=== PATIENT | male | born 1985 | race Caucasian/White ===

== ENCOUNTER 2019-09-11 15:07 | Emergency (ER) | payer SELFPAY ==
[2019-09-11] VITALS (9 sets, daily range): BP systolic 94–129; BP diastolic 54–82; PULSE 62–91; RESP 12–18; TEMP 36.3; O2SAT 98–100; BMI 22.3
--- NOTE | 2019-09-11 15:07 | ECG_ITS ---
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 Measurements Intervals [place] Rate: 76 P: 149 GA: 160 QRS: 145 QRSD: 89 T: 149 QT: 370 QTc: 418 Interpretive Statements SINUS RHYTHM ARM LEADS REVERSED [INVERTED P AND QRS IN I] No previous ECG available for comparison Electronically Signed On 09-12-2019 15:11:23 CDT by Dewey Alas M.D. [id number]
--- NOTE | 2019-09-11 15:07 | CTR_ITS ---
PROCEDURE INFORMATION: Exam: CT Head Without Contrast Exam date and time: 09/11/2019 3:17 PM Age: 26 years old Clinical indication: Altered mental status/memory loss; Patient HX: Patient found on the side of the road with possible siezure activity. No further HX. ; Additional info: AMS, new onset seizure TECHNIQUE: Imaging protocol: Computed tomography of the head without contrast. Radiation optimization: All CT scans at this facility use at least one of these dose optimization techniques: automated exposure control; mA and/or kV adjustment per patient size (includes targeted exams where dose is matched to clinical indication); or iterative reconstruction. COMPARISON: No relevant prior studies available. RADIATION DOSE METRICS: Total DLP (mGy-cm): 771.66 FINDINGS: Brain: Normal. No hemorrhage. Unremarkable white matter. No mass effect. Ventricles: Normal variant cavum septum pellucidum. Bones/joints: Unremarkable. No acute fracture. Sinuses: Visualized sinuses are unremarkable. No fluid levels. Mastoid air cells: Visualized mastoid air cells are well aerated. Auditory system: There is cerumen in the left external auditory canal. Soft tissues: Unremarkable. CT/CT head wo con* [id number] IMPRESSION: No acute findings. Radiation Dose CTDIVOL = (mGy): DLP = 771.66 (mGy-cm)
--- NOTE | 2019-09-11 15:08 | XRR_ITS ---
PROCEDURE INFORMATION: Exam: XR Chest, 1 View Exam date and time: 09/11/2019 3:17 PM Age: 26 years old Clinical indication: Shortness of breath; Additional info: AMS, seizure TECHNIQUE: Imaging protocol: XR of the chest Views: 1 view. COMPARISON: No relevant prior studies available. FINDINGS: Lungs: Unremarkable. No consolidation. Pleural space: Unremarkable. No pleural effusion. No pneumothorax. Heart/Mediastinum: Unremarkable. No cardiomegaly. Bones/joints: Thoracic dextroscoliosis. XR/XR chest 1V portable [id number] IMPRESSION: No acute findings.
[2019-09-11] MEDS: sodium chloride 0.9% 1,000 ML 999 ML IV ×2 (15:13→18:21)
--- NOTE | 2019-09-11 15:28 | PC.NURSE ---
Pt to CT
--- NOTE | 2019-09-11 15:34 | ED_ITS ---
Documented by User: Blanca Kohli MD 09/13/19 13:30 HPI - Seizure General: Chief Complaint: Seizure Stated Complaint: UNRESPONSIVE; SEIZURES Time Seen by Provider: 09/11/19 19:49 History of Present Illness: HPI Narrative: This patient is a 26-year-old male brought in by ambulance. He was found on the side of the road unresponsive. There is no sign of trauma. EMS had him in their rig when he had what appeared to them to be a seizure. He was given 1 mg of Ativan. There was a period of time that he was awake and able to provide some history to EMS. He told him that he has a history of narcolepsy and sometimes has twitching with that. He does not have a history of seizures. He apparently was here living with a friend but they be came estranged and the patient told EMS that he was walking back to [place] where he lived previously. On my exam the patient is responsive to stimuli but is not waking up and answering my questions. complaint: possible seizure Description of Episode: loss of consciousness and tonic-clonic movement Witnessed: Yes - by EMS Trauma: No Seizure History: No Place: Outdoors Possible Precipitating Event: drug use (Patient was found with marijuana) and stress Review of Systems General: Reports: ROS unobtainable due to mental status PFSH ED PFSH: Social History Smoking and tobacco status: unknown if ever smoked Physical Exam Const: COMMON NORMALS: no acute distress GENERAL APPEARANCE: comfortable HENMT: HEAD & SCALP: normal to inspection FACE & SINUS: normal facial exam Eye: GENERAL EYE: appearance normal, both eyes and all related structures Neck/C-Spine: COMMON NORMALS: supple, no meningeal signs and no JVD Chest: COMMONS NORMALS: normal inspection of the chest Resp: COMMON NORMALS: normal respiratory effort, No use of accessory muscles and clear to auscultation bilaterally AUSCULTATION: clear to auscultation bilaterally Cardio: COMMON NORMALS: no JVD, regular rate, regular rhythm and No murmurs present (Cardio) RATE: regular rate RHYTHM: regular rhythm GI: COMMON NORMALS: Normal to inspection, nondistended, normoactive bowel sounds present, Soft to palpation and non-tender INSPECTION: Yes normal to inspection AUSCULTATION: Yes normoactive bowel sounds PALPATION: Yes Soft to palpation Back/Pelvis: COMMON NORMALS: thoracic and lumbar spine normal to inspection Extremity: COMMON NORMALS: normal to inspection Neuro: COMMON NORMALS: moves all extremities, no focal motor deficits and no sensory deficits noted MENINGEAL SIGNS: Yes no meningeal signs Skin: COMMON NORMALS: no rashes or lesions noted and turgor normal GENERAL SKIN EXAM: no rashes or lesions noted and turgor normal Course Reevaluation(s): Reevaluation #1: Patient sleeping. He woke to a gentle sternal rub. He was still not conversational. Vital signs remained stable. Lab work has been relatively unremarkable other than probably some dehydration. Urine drug screen was positive for amphetamines and marijuana. We will continue to hydrate and let him rest. I am not sure if he is postictal from a seizure or if this is a recovery period after methamphetamine use. I will turn his care over to Dr. Petit who is coming on for the maintenance technician 2nd shift. Vital Signs: Vital signs: Vital Signs Temperature 97.3 F L 09/11/19 14:59 Pulse Rate 91 09/11/19 20:27 Respiratory Rate 18 09/11/19 20:27 Blood Pressure 103/60 09/11/19 20:27 Pulse Oximetry 100 09/11/19 20:27 MDM - Seizure Lab Data: Labs: Lab Results 09/11/19 09/11/19 09/11/19 Range/Units 16:00 16:00 16:10 WBC (4.0-10.0) 10^3/ uL RBC (4.1-5.3) 10^6/u L Hgb (11.7-16.6) g/dL Hct (42.0-52.0) % MCV (80-94) fL MCH (28.0-34.0) pg MCHC (30.0-36.0) g/dL RDW (12.1-15.1) % Plt Count (130-400) 10^3/c mm MPV (7.4-10.4) fL Neut % (Auto) % Lymph % (Auto) % [place] % (Auto) % Eos % (Auto) % Baso % (Auto) % Neut # (Auto) (1.8-7.7) 10^3/u L Lymph # (Auto) (0.8-4.8) 10^3/u L [place] # (Auto) (0.2-0.9) 10^3/u L Eos # (Auto) (0.0-0.8) 10^3/u L Baso # (Auto) (0.0-0.1) 10^3/u L Nucleated RBC % (a uto) % Nucleated RBCs # /100WBC Sodium 140 (136-145) mmol/L Potassium 4.4 (3.5-5.1) mmol/L Chloride 101 (98-107) mmol/L Carbon Dioxide 26 (22-29) mmol/L Anion Gap 17.4 (5-19) BUN 19 (6-20) mg/dL Creatinine 1.4 H (0.7-1.2) mg/dL GFR Calculation 62.3 L (90-130) mL/min Glucose 92 (65-115) mg/dL Calculated Osmolal ity 286 (285-295) mOsm/k g Lactate (0.5-2.2) mmol/L Calcium 9.6 (8.5-10.5) mg/dL Total Bilirubin 0.4 (0.15-1.2) mg/dL AST 17 (0-40) U/L ALT 10 (0-41) U/L Alkaline Phosphata se 62 (40-130) IU/L Creatine Kinase 224 (39-308) U/L CK-MB (CK-2) 2.5 (0-10.4) ng/mL CK-MB (CK-2) Rel I ndex (0.0-5.3) % Total Protein 7.4 (6.6-8.7) g/dL Albumin 4.8 (3.5-5.2) g/dL Globulin 2.6 (1.3-4.6) g/dL Urine Color Dark yellow (Yellow) Urine Appearance Clear (CLEAR) Urine pH 5 (5-7) Ur Specific Gravit y 1.030 (1.005-1.030) Urine Protein Trace (Negative) Urine Glucose (UA) Norm (Normal) Urine Ketones 1+ H (Negative) Urine Blood Neg (Negative) Urine Nitrate Negative (Negative) Urine Bilirubin 1+ H (NEGATIVE) Urine Urobilinogen 4 H (Negative) mg/dL Ur Leukocyte Nelli ase Negative (Negative) Urine RBC None (0-2) /hpf Urine WBC 0-4 H (0-5) /hpf Ur Squamous Epith Cells None (0-5) Ur Transition Epit h Cell Rare /hpf Amorphous Sediment Not Reportable Urine Bacteria Trace (NONE) Urine Mucus 2+ Urine Opiates Scre en Negative (Negative) ng/mL Ur Barbiturates Sc reen Negative (Negative) ng/mL Ur Phencyclidine S crn Negative (Negative) ng/mL Ur Amphetamines Sc reen Positive H (Negative) ng/mL U Benzodiazepines Scrn Negative (Negative) ng/mL Urine Cocaine Scre en Negative (Negative) ng/mL U Marijuana (THC) Screen Positive H (Negative) ng/mL Ethyl Alcohol < 10 (0-10) mg/dL 09/11/19 09/11/19 Range/Units 16:10 16:10 WBC 13.9 H (4.0-10.0) 10^3/ uL RBC 5.13 (4.1-5.3) 10^6/u L Hgb 15.1 (11.7-16.6) g/dL Hct 45.1 (42.0-52.0) % MCV 87.9 (80-94) fL MCH 29.4 (28.0-34.0) pg MCHC 33.5 (30.0-36.0) g/dL RDW 13.0 (12.1-15.1) % Plt Count 378 (130-400) 10^3/c mm MPV 8.2 (7.4-10.4) fL Neut % (Auto) 74.2 % Lymph % (Auto) 16.8 % [place] % (Auto) 7.7 % Eos % (Auto) 0.8 % Baso % (Auto) 0.3 % Neut # (Auto) 10.3 H (1.8-7.7) 10^3/u L Lymph # (Auto) 2.3 (0.8-4.8) 10^3/u L [place] # (Auto) 1.1 H (0.2-0.9) 10^3/u L Eos # (Auto) 0.1 (0.0-0.8) 10^3/u L Baso # (Auto) 0.0 (0.0-0.1) 10^3/u L Nucleated RBC % (a uto) 0 % Nucleated RBCs # 0.0 /100WBC Sodium (136-145) mmol/L Potassium (3.5-5.1) mmol/L Chloride (98-107) mmol/L Carbon Dioxide (22-29) mmol/L Anion Gap (5-19) BUN (6-20) mg/dL Creatinine (0.7-1.2) mg/dL GFR Calculation (90-130) mL/min Glucose (65-115) mg/dL Calculated Osmolal ity (285-295) mOsm/k g Lactate 1.0 (0.5-2.2) mmol/L Calcium (8.5-10.5) mg/dL Total Bilirubin (0.15-1.2) mg/dL AST (0-40) U/L ALT (0-41) U/L Alkaline Phosphata se (40-130) IU/L Creatine Kinase (39-308) U/L CK-MB (CK-2) (0-10.4) ng/mL CK-MB (CK-2) Rel I ndex (0.0-5.3) % Total Protein (6.6-8.7) g/dL Albumin (3.5-5.2) g/dL Globulin (1.3-4.6) g/dL Urine Color (Yellow) Urine Appearance (CLEAR) Urine pH (5-7) Ur Specific Gravit y (1.005-1.030) Urine Protein (Negative) Urine Glucose (UA) (Normal) Urine Ketones (Negative) Urine Blood (Negative) Urine Nitrate (Negative) Urine Bilirubin (NEGATIVE) Urine Urobilinogen (Negative) mg/dL Ur Leukocyte Nelli ase (Negative) Urine RBC (0-2) /hpf Urine WBC (0-5) /hpf Ur Squamous Epith Cells (0-5) Ur Transition Epit h Cell /hpf Amorphous Sediment Urine Bacteria (NONE) Urine Mucus Urine Opiates Scre en (Negative) ng/mL Ur Barbiturates Sc reen (Negative) ng/mL Ur Phencyclidine S crn (Negative) ng/mL Ur Amphetamines Sc reen (Negative) ng/mL U Benzodiazepines Scrn (Negative) ng/mL Urine Cocaine Scre en (Negative) ng/mL U Marijuana (THC) Screen (Negative) ng/mL Ethyl Alcohol (0-10) mg/dL Discharge Plan Discharge Patient Disposition: Home, Self-Care Clinical Impression: Generalized seizure, Substance abuse Heat causing collapse Qualifiers: Encounter type: initial encounter Qualified Code(s): T67.1XXA - Heat syncope, initial encounter Condition: Stable Prescriptions: No Action Unable to Assess RF: 0 Discharge Orders: Discharge Order (Routine); Ordered 09/11/19 Ordered By: Jann Petit Discharge Diet: Advance as tolerated Discharge Activity: Limit activity as instructed Patient Instructions: Heat Exhaustion (ED), Seizures Activity Restrictions/Additional Instructions: Plenty of liquids over the next 48 hours. Reduce activity in the heat for the next 48 hours as a minimum. Abstain from illicit substances. Return for repeat episodes of seizures, fever, mental status changes, other concerning symptoms Discharge Date/Time: 09/11/19 20:29 Coding Level of Care Code ED Receiving Inspector for Chg Fwd Exam Comprehensive Documented by User: Jann Petit DO 09/12/19 07:05 HPI - Seizure General: Chief Complaint: Seizure Stated Complaint: UNRESPONSIVE; SEIZURES Time Seen by Provider: 09/11/19 19:49 PFSH ED PFSH: Social History Smoking and tobacco status: unknown if ever smoked Course Vital Signs: Vital signs: Vital Signs Temperature 97.3 F L 09/11/19 14:59 Pulse Rate 91 09/11/19 20:27 Respiratory Rate 18 09/11/19 20:27 Blood Pressure 103/60 09/11/19 20:27 Pulse Oximetry 100 09/11/19 20:27 MDM - Seizure MDM Narrative: Medical decision making narrative: 34-year-old male checked out to me by Dr. Kohli at shift change. He evidently had had a collapse along the side of the road walking to [place] [facility] witnessed what they thought was tonic- clonic seizure type activity after they were called to the scene. He has had no seizure activity here. He is slept, and woken up. He is completely appropriate. He is called a couple of family members to come get him, but no one has answered the call. He has been hydrated. Is a mild elevation in his w vladislav blood cell count and creatinine, his other laboratory is benign. Head CT and chest x-ray are negative. His UDS was positive for amphetamines and marijuana. With return to baseline, and after hydration, he will be discharged Lab Data: Labs: Lab Results 09/11/19 09/11/19 09/11/19 Range/Units 16:00 16:00 16:10 WBC (4.0-10.0) 10^3/ uL RBC (4.1-5.3) 10^6/u L Hgb (11.7-16.6) g/dL Hct (42.0-52.0) % MCV (80-94) fL MCH (28.0-34.0) pg MCHC (30.0-36.0) g/dL RDW (12.1-15.1) % Plt Count (130-400) 10^3/c mm MPV (7.4-10.4) fL Neut % (Auto) % Lymph % (Auto) % [place] % (Auto) % Eos % (Auto) % Baso % (Auto) % Neut # (Auto) (1.8-7.7) 10^3/u L Lymph # (Auto) (0.8-4.8) 10^3/u L [place] # (Auto) (0.2-0.9) 10^3/u L Eos # (Auto) (0.0-0.8) 10^3/u L Baso # (Auto) (0.0-0.1) 10^3/u L Nucleated RBC % (a uto) % Nucleated RBCs # /100WBC Sodium 140 (136-145) mmol/L Potassium 4.4 (3.5-5.1) mmol/L Chloride 101 (98-107) mmol/L Carbon Dioxide 26 (22-29) mmol/L Anion Gap 17.4 (5-19) BUN 19 (6-20) mg/dL Creatinine 1.4 H (0.7-1.2) mg/dL GFR Calculation 62.3 L (90-130) mL/min Glucose 92 (65-115) mg/dL Calculated Osmolal ity 286 (285-295) mOsm/k g Lactate (0.5-2.2) mmol/L Calcium 9.6 (8.5-10.5) mg/dL Total Bilirubin 0.4 (0.15-1.2) mg/dL AST 17 (0-40) U/L ALT 10 (0-41) U/L Alkaline Phosphata se 62 (40-130) IU/L Creatine Kinase 224 (39-308) U/L CK-MB (CK-2) 2.5 (0-10.4) ng/mL CK-MB (CK-2) Rel I ndex (0.0-5.3) % Total Protein 7.4 (6.6-8.7) g/dL Albumin 4.8 (3.5-5.2) g/dL Globulin 2.6 (1.3-4.6) g/dL Urine Color Dark yellow (Yellow) Urine Appearance Clear (CLEAR) Urine pH 5 (5-7) Ur Specific Gravit y 1.030 (1.005-1.030) Urine Protein Trace (Negative) Urine Glucose (UA) Norm (Normal) Urine Ketones 1+ H (Negative) Urine Blood Neg (Negative) Urine Nitrate Negative (Negative) Urine Bilirubin 1+ H (NEGATIVE) Urine Urobilinogen 4 H (Negative) mg/dL Ur Leukocyte Nelli ase Negative (Negative) Urine RBC None (0-2) /hpf Urine WBC 0-4 H (0-5) /hpf Ur Squamous Epith Cells None (0-5) Ur Transition Epit h Cell Rare /hpf Amorphous Sediment Not Reportable Urine Bacteria Trace (NONE) Urine Mucus 2+ Urine Opiates Scre en Negative (Negative) ng/mL Ur Barbiturates Sc reen Negative (Negative) ng/mL Ur Phencyclidine S crn Negative (Negative) ng/mL Ur Amphetamines Sc reen Positive H (Negative) ng/mL U Benzodiazepines Scrn Negative (Negative) ng/mL Urine Cocaine Scre en Negative (Negative) ng/mL U Marijuana (THC) Screen Positive H (Negative) ng/mL Ethyl Alcohol < 10 (0-10) mg/dL 09/11/19 09/11/19 Range/Units 16:10 16:10 WBC 13.9 H (4.0-10.0) 10^3/ uL RBC 5.13 (4.1-5.3) 10^6/u L Hgb 15.1 (11.7-16.6) g/dL Hct 45.1 (42.0-52.0) % MCV 87.9 (80-94) fL MCH 29.4 (28.0-34.0) pg MCHC 33.5 (30.0-36.0) g/dL RDW 13.0 (12.1-15.1) % Plt Count 378 (130-400) 10^3/c mm MPV 8.2 (7.4-10.4) fL Neut % (Auto) 74.2 % Lymph % (Auto) 16.8 % [place] % (Auto) 7.7 % Eos % (Auto) 0.8 % Baso % (Auto) 0.3 % Neut # (Auto) 10.3 H (1.8-7.7) 10^3/u L Lymph # (Auto) 2.3 (0.8-4.8) 10^3/u L [place] # (Auto) 1.1 H (0.2-0.9) 10^3/u L Eos # (Auto) 0.1 (0.0-0.8) 10^3/u L Baso # (Auto) 0.0 (0.0-0.1) 10^3/u L Nucleated RBC % (a uto) 0 % Nucleated RBCs # 0.0 /100WBC Sodium (136-145) mmol/L Potassium (3.5-5.1) mmol/L Chloride (98-107) mmol/L Carbon Dioxide (22-29) mmol/L Anion Gap (5-19) BUN (6-20) mg/dL Creatinine (0.7-1.2) mg/dL GFR Calculation (90-130) mL/min Glucose (65-115) mg/dL Calculated Osmolal ity (285-295) mOsm/k g Lactate 1.0 (0.5-2.2) mmol/L Calcium (8.5-10.5) mg/dL Total Bilirubin (0.15-1.2) mg/dL AST (0-40) U/L ALT (0-41) U/L Alkaline Phosphata se (40-130) IU/L Creatine Kinase (39-308) U/L CK-MB (CK-2) (0-10.4) ng/mL CK-MB (CK-2) Rel I ndex (0.0-5.3) % Total Protein (6.6-8.7) g/dL Albumin (3.5-5.2) g/dL Globulin (1.3-4.6) g/dL Urine Color (Yellow) Urine Appearance (CLEAR) Urine pH (5-7) Ur Specific Gravit y (1.005-1.030) Urine Protein (Negative) Urine Glucose (UA) (Normal) Urine Ketones (Negative) Urine Blood (Negative) Urine Nitrate (Negative) Urine Bilirubin (NEGATIVE) Urine Urobilinogen (Negative) mg/dL Ur Leukocyte Nelli ase (Negative) Urine RBC (0-2) /hpf Urine WBC (0-5) /hpf Ur Squamous Epith Cells (0-5) Ur Transition Epit h Cell /hpf Amorphous Sediment Urine Bacteria (NONE) Urine Mucus Urine Opiates Scre en (Negative) ng/mL Ur Barbiturates Sc reen (Negative) ng/mL Ur Phencyclidine S crn (Negative) ng/mL Ur Amphetamines Sc reen (Negative) ng/mL U Benzodiazepines Scrn (Negative) ng/mL Urine Cocaine Scre en (Negative) ng/mL U Marijuana (THC) Screen (Negative) ng/mL Ethyl Alcohol (0-10) mg/dL Discharge Plan Discharge Patient Disposition: Home, Self-Care Clinical Impression: Generalized seizure, Substance abuse Heat causing collapse Qualifiers: Encounter type: initial encounter Qualified Code(s): T67.1XXA - Heat syncope, initial encounter Condition: Stable Prescriptions: No Action Unable to Assess RF: 0 Discharge Orders: Discharge Order (Routine); Ordered 09/11/19 Ordered By: Jann Petit Discharge Diet: Advance as tolerated Discharge Activity: Limit activity as instructed Patient Instructions: Heat Exhaustion (ED), Seizures Activity Restrictions/Additional Instructions: Plenty of liquids over the next 48 hours. Reduce activity in the heat for the next 48 hours as a minimum. Abstain from illicit substances. Return for repeat episodes of seizures, fever, mental status changes, other concerning symptoms Discharge Date/Time: 09/11/19 20:29 Coding Level of Care Code ED Receiving Inspector for Nika Fwd Exam Comprehensive
--- NOTE | 2019-09-11 15:36 | PC.NURSE ---
Pt returned from CT
[2019-09-11 16:18] LABS: Basophils % 0.3 %; Eosinophils # 0.1 10^3/uL (0.0-0.8); Eosinophils % 0.8 %; Hematocrit 45.1 % (42.0-52.0); Hemoglobin 15.1 g/dL (11.7-16.6); Lymphocytes # 2.3 10^3/uL (0.8-4.8); Lymphocytes % 16.8 %; Mean Corpuscular HGB Conc 33.5 g/dL (30.0-36.0); Mean Corpuscular Hemoglobin 29.4 pg (28.0-34.0); Mean Corpuscular Volume 87.9 fL (80-94); Mean Platelet Volume 8.2 fL (7.4-10.4); Monocytes # 1.1 10^3/uL (0.2-0.9); Monocytes % 7.7 %; Neutrophils # 10.3 10^3/uL (1.8-7.7); Neutrophils % 74.2 %; Nucleated Red Blood Cells % 0 %; Platelet Count 378 10^3/cmm (130-400); Red Blood Count 5.13 10^6/uL (4.1-5.3); White Blood Count 13.9 10^3/uL (4.0-10.0)
[2019-09-11 16:28] LABS: Add Urine Microscopic? YES; Amphetamines Screen Urine Positive (Negative); Barbiturates Screen Urine Negative (Negative); Benzodiazepines Screen Urine Negative (Negative); Bilirubin Urine 1+ (NEGATIVE); Blood Urine Neg (Negative); Cocaine Screen Urine Negative (Negative); Glucose Urine UA Norm (Normal); Ketones Urine 1+ (Negative); Leukocyte Esterase Urine Negative (Negative); Nitrate Urine Negative (Negative); Opiate Screen Urine Negative (Negative); PCP Screen Urine Negative (Negative); Protein Urine Trace (Negative); THC Screen Urine Positive (Negative); Urine Appearance Clear (CLEAR); Urine Color Dark Yellow (Yellow); Urobilinogen Urine 4 mg/dL (Negative); pH Urine 5 (5-7)
[2019-09-11 16:29] LABS: Add Urine Culture? No; Bacteria Urine TRACE; Mucus Urine 2+; Transitional Epi Cells Urine RARE /hpf; WBC Urine 0-4 /hpf (0-5)
[2019-09-11 16:31] LABS: Alanine Aminotransferase 10 U/L (0-41); Albumin Level 4.8 g/dL (3.5-5.2); Alkaline Phosphatase 62 IU/L (40-130); Anion Gap 17.4 (5-19); Aspartate Amino Transferase 17 U/L (0-40); Blood Urea Nitrogen 19 mg/dL (6-20); Calcium 9.6 mg/dL (8.5-10.5); Carbon Dioxide 26 mmol/L (22-29); Chloride 101 mmol/L (98-107); Creatine Phosphokinase 224 U/L (39-308); Globulin 2.6 g/dL (1.3-4.6); Glomerular Filtration Rate 62.3 mL/min (90-130); Glucose 92 mg/dL (65-115); Osmolality Calculated 286 mOsm/kg (285-295); Potassium 4.4 mmol/L (3.5-5.1); Sodium 140 mmol/L (136-145); Total Bilirubin 0.4 mg/dL (0.15-1.2); Total Protein 7.4 g/dL (6.6-8.7)
[2019-09-11 16:37] LABS: Alcohol Level < 10 mg/dL (0-10)
--- NOTE | 2019-09-11 16:52 | ECG_ITS ---
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 Measurements Intervals [place] Rate: 74 P: 60 RI: 151 QRS: 88 QRSD: 87 T: 62 QT: 376 QTc: 417 Interpretive Statements SINUS RHYTHM Poor R wave progression Compared to ECG 09/11/2019 15:47:25 No significant changes Electronically Signed On 09-12-2019 15:11:45 CDT by Dewey Alas M.D. [id number]
[2019-09-11 17:04] LABS: CKMB 2.5 ng/mL (0-10.4)
--- NOTE | 2019-09-11 19:38 | PC.NURSE ---
attempted to call back phone number that pt gave me and it was a wrong number. will attempt to use pts cell phone with his permission.
== END 2019-09-11 20:29 | disposition home or self-care (01) ==
PROVIDERS: Emergency Medicine; Emergency Provider Emergency Medicine
DX: G40.89 Other seizures (principal); T67.1XXA Heat syncope, initial encounter; F19.10 Other psychoactive substance abuse, uncomplicated
CPT/HCPCS: 12345; 36415; 70450; 71045; 80053; 80306; 80307; 81001; 82550; 82553; 83605; 85025; 93005; 96360; 96361; 99284; J7030